=== PATIENT | male | born 1930 | race Caucasian/White ===

== ENCOUNTER 2018-03-14 11:19 | Emergency (ER) | payer MEDICARE ==
[2018-03-14 12:27] LABS: #Basophils 0.1 thou/uL (0.0-0.2); #Eosinphils 0.2 thou/uL (0.0-0.7); #Monocytes 0.6 thou/uL (0.11-0.59); #Neutrophils 5.4 thou/uL (1.40-6.50); %Basophils 1.1 % (0.0-1.0); %Eosinophils 2.1 % (0.0-10.0); %Lymphocytes 23.9 % (21.0-51.0); %Monocytes 7.5 % (0.0-10.0); %Neutrophils 65.3 % (42.0-75.0); Hemoglobin 13.4 g/dL (14.0-18.0); Mean Corpuscular HGB CONC 34.7 g/dL (32.0-36.0); Mean Corpuscular Hemoglobin 31.8 pg (27.0-31.0); Mean Corpuscular Volume 91.6 fl (80.0-94.0); Mean Platelet Volume 7.5 fL (7.4-10.4); Platelet Count 171 thou/uL (130-400); RBC Distribution Width 11.7 % (11.5-14.5); Red Blood Cell (RBC) Count 4.22 mill/uL (4.70-6.10); White Blood Cell (WBC) Count 8.2 thou/uL (4.8-10.8)
[2018-03-14 12:36] LABS: Anion Gap 12 mmol/L (10-20); BUN (Urea Nitrogen) 21 mg/dL (8.4-25.7); Calc. Creatinine Clearance 0 mL/min (70-130); Carbon Dioxide 24 mmol/L (23-31); Chloride 108 mmol/L (98-107); Estimated GFR-MDRD 50; Glucose 209 mg/dL (83-110); Potassium 4.5 mmol/L (3.5-5.1); Sodium 139 mmol/L (136-145)
[2018-03-14 12:45] LABS: Base Excess-Venous -1.9 mmol/L (0 (+/- 2.5)); Bicarbonate (HCO3v) 24.2 mmol/L (1.0-85.0); CO2 Tension (PvCO2) 44.5 mmHg (41.0-51.0); Calcium, Ionized 1.16 mmol/L (1.12-1.32); Hemoglobin - Calc 18.6 g/dL (12.0-18.0); O2 Tension (PvO2) 25.2 mmHg (35.0-45.0); Potassium 4.6 mmol/L (3.4-4.7); T. Carbon Dioxide 25.5 mmol/L (1.0-85.0); pH (Venous) 7.343 (7.35-7.45)
[2018-03-14 13:23] LABS: Bilirubin Negative (Negative); Blood, Urine Negative (Negative); Clarity Clear (Clear); Glucose, Urine (Dipstick) 100 mg/dL (Negative); Leukocyte Negative (Negative); Nitrite Negative (Negative); Protein, Urine (Dipstick) Negative (Neg-Trace); Specific Gravity, Urine 1.015 (1.005-1.030); Urobilinogen 0.2 mg/dL (0.2-1.0); pH, Urine 6.5 (5.0-9.0)
== END 2018-03-14 13:40 | disposition home or self-care (01) ==
LOC: SCSER 11:19
DX: E11.65 Type 2 diabetes mellitus with hyperglycemia (principal); I10 Essential (primary) hypertension; E78.5 Hyperlipidemia, unspecified; Z79.82 Long term (current) use of aspirin; Z79.899 Other long term (current) drug therapy
CPT/HCPCS: 36416; 80048; 81003; 82010; 82330; 82803; 85025; 99284; 36415-59

== ENCOUNTER 2019-05-27 11:52 | Observation (INO) | payer MEDICARE ==
--- NOTE | 2019-05-27 12:46 | CT ---
Head CT without contrast 05/27/2019: COMPARISON: 10/31/2010 HISTORY: Altered mental status TECHNIQUE: Axial CT imaging at 5 mm intervals from vertex through skull base without contrast FINDINGS: There is persistent motion artifact throughout this examination, significantly limiting det felipa assessment. There is diffuse cerebral volume loss. There is periventricular, deep, and subcortical white matter hypodensity, evidence of small vessel disease. No obvious hemorrhage. Hypode nsity within the inferior posterior left cerebellar hemisphere suggest an area of prior infarction. IMPRESSION: This study is significantly limited by motion. No obvious acute intracranial abnormality.
--- NOTE | 2019-05-27 12:52 | RAD ---
Portable frontal chest radiograph: 05/27/2019 COMPARISON: 12/16/2004 HISTORY: Altered mental status FINDINGS: Stable midline sternotomy wires. Stable prominence of the cardiac silhouette. No pneumothor ax or pleural fluid. No focal consolidation or alveolar edema. IMPRESSION: No acute findings.
[2019-05-27 13:17] LABS: #Basophils 0.1 thou/uL (0.0-0.2); #Eosinphils 0.2 thou/uL (0.0-0.7); #Lymphocytes 2.1 thou/uL (1.20-3.40); #Monocytes 0.7 thou/uL (0.11-0.59); #Neutrophils 5.1 thou/uL (1.40-6.50); %Basophils 1.1 % (0.0-1.0); %Eosinophils 1.9 % (0.0-10.0); %Lymphocytes 25.5 % (21.0-51.0); %Monocytes 8.3 % (0.0-10.0); %Neutrophils 63.3 % (42.0-75.0); Hemoglobin 13.1 g/dL (14.0-18.0); Mean Corpuscular HGB CONC 32.2 g/dL (32.0-36.0); Mean Corpuscular Hemoglobin 30.9 pg (27.0-31.0); Mean Corpuscular Volume 95.8 fL (78.0-98.0); Mean Platelet Volume 7.7 fL (7.4-10.4); Platelet Count 203 thou/uL (130-400); RBC Distribution Width 13.2 % (11.5-14.5); Red Blood Cell (RBC) Count 4.25 mill/uL (4.70-6.10); White Blood Cell (WBC) Count 8.1 thou/uL (4.8-10.8)
[2019-05-27 13:31] LABS: ALT (SGPT) 23 U/L (8-55); AST (SGOT) 18 U/L (5-34); Acetaminophen Less than 6.0 mcg/mL (10.0-30.0); Albumin 3.9 g/dL (3.4-4.8); Alcohol Less than 10 mg/dL (Less than 10); Alkaline Phosphatase 156 U/L (40-150); Anion Gap 13 mmol/L (10-20); BUN (Urea Nitrogen) 28 mg/dL (8.4-25.7); Bilirubin, Total 0.5 mg/dL (0.2-1.2); CK (CPK) 194 U/L (30-200); Calc. Creatinine Clearance 0 mL/min (70-130); Calcium 9.2 mg/dL (7.8-10.44); Carbon Dioxide 23 mmol/L (23-31); Chloride 110 mmol/L (98-107); Estimated GFR-MDRD 39; Globulin 3.2 g/dL (2.4-3.5); Glucose 173 mg/dL (83-110); Lipase 14 U/L (8-78); Potassium 4.3 mmol/L (3.5-5.1); Protein, Total 7.1 g/dL (5.8-8.1); Salicylate Less than 8.0 mg/dL (15.0-30.0); Sodium 142 mmol/L (136-145)
[2019-05-27 14:54] LABS: Bilirubin Negative (Negative); Blood, Urine Small (Negative); Glucose, Urine (Dipstick) Negative (Negative); Leukocyte Negative (Negative); Nitrite Negative (Negative); Protein, Urine (Dipstick) Trace mg/dL (Neg-Trace); Urobilinogen 0.2 mg/dL (Less than 2)
[2019-05-27 14:59] LABS: Clarity Hazy (Clear)
[2019-05-27 15:01] LABS: Bacteria/HPF Rare-Few HPF (None Seen); Squamous Epithelial None Seen HPF (0-3); WBC/HPF None Seen HPF (0-3)
[2019-05-27 15:05] LABS: Amphetamine Not Detected (NotDetected); Barbiturates Screen Not Detected (NotDetected); Benzodiazepine Screen Not Detected (NotDetected); Cocaine Metabolite Screen Not Detected (NotDetected); Medtox Control Line Valid? VALID (VALID); Methadone Not Detected (NotDetected); Methamphetamine Not Detected (NotDetected); Opiate Screen Not Detected (NotDetected); Oxycodone Screen Not Detected (NotDetected); Phencyclidine (PCP) Not Detected (NotDetected); THC/Cannabinoid Screen Not Detected (NotDetected); Tricyclic Screen Not Detected (NotDetected)
[2019-05-27] MEDS ORDERED: Aspirin Chewable 81 MG TAB ONE (16:16)
[2019-05-27 16:27] LABS: Troponin I 0.013 ng/mL (< 0.028)
[2019-05-27] MEDS ORDERED: Insulin Regular 300 UNITS/3 ML VIAL SC PRN (17:27)
[2019-05-27] MEDS ORDERED: Dextrose 50% Abboject 50 ML SYRINGE IVP PRN (17:27)
[2019-05-27] MEDS ORDERED: Dextrose 5% in Water 1,000 ML IV PRN ×2 (17:27→20:31)
[2019-05-27] MEDS ORDERED: Ondansetron ODT 4 MG TAB SL PRN (17:28)
[2019-05-27] MEDS ORDERED: Acetaminophen 325 MG TAB PO PRN ×2 (17:28→20:34)
[2019-05-27] MEDS ORDERED: Ondansetron PF 4 MG/2 ML Vial IVP PRN ×2 (17:28→20:34)
[2019-05-27 19:19] VITALS: BMI 27.0
[2019-05-27 19:40] LABS: Troponin I Less than 0.010 ng/mL (< 0.028)
[2019-05-27] MEDS ORDERED: HumaLOG 300 UNITS/3 ML VIAL SC PRN ×2 (20:31)
[2019-05-27] MEDS ORDERED: Dextrose 50% Abboject 50 ML SYRINGE SLOW IVP PRN (20:31)
[2019-05-27] MEDS ORDERED: Ondansetron ODT 4 MG TAB PO PRN (20:34)
[2019-05-27] MEDS ORDERED: Acetaminophen 650 MG Suppository PR PRN (20:34)
[2019-05-27] MEDS ORDERED: Atorvastatin Calcium 20 MG TAB PO SCH (21:00)
[2019-05-27] MEDS ORDERED: Non-Formulary Item 1 EACH (Insulin Glargine,Hum.Rec.Anlog [Lantus Solostar] 12 UNIT) SQ SCH (21:00)
--- NOTE | 2019-05-27 22:21 | HP ---
PRIMARY CARE PHYSICIAN: Dr. Kimberly Malcolm. CHIEF COMPLAINT: Memory loss and altered mood. HISTORY OF PRESENT ILLNESS: Mr. Mercado is an 88-year-old man with a known history of diabetes, coronary artery disease, and hyperlipidemia, who was brought in by his daughter due to increasing confusion and memory problems over the last month. The patient confirms he has had trouble remembering things for the last 3 to 4 weeks and also reports increasing weakness in his legs causing him to have difficulty walking long distances. Previously, he would walk 4-5 blocks without any trouble and now has moments when his legs feel weak and give out when walking short distances. He states he feels tired quickly, but denies any associated chest pain or shortness of breath. Also denies any dizziness. He reports being more forgetful for the last month. Denies any headache, vision changes, or slurred speech. Has not had trouble finding his words, but according to his daughters, he has been forgetting their names. Currently, he lives with his whom he does not have a great relationship with. They stay in separate rooms and per his daughters, he is easily agitated by his whenever she attempts to remind him to take his pills. They suspect he might be forgetting to take his insulin at night as well. The patient is suspected to be up all hours of the night as he is sleeping later. Yesterday, he woke up around 2: 00 p.m. and family report bizarre behavior. They state he got up to get dressed for a and managed to drive himself to [facility] because he could not remember where the hinduism was. There was actually no going on. The patient has no known history of Parkinson's or Alzheimer's. According to his daughters, he did go through rough period more than 5 years ago after the of his father. He stopped taking his medications and had severely uncontrolled hyperglycemia. He was admitted for suspected CVA; however after undergoing imaging and seeing a specialist in [place], they were told he did not have a stroke and actually had plaques in the brain associated with hyperglycemia. He was treated with medications for Parkinson disease. That medication the daughter states was Xenazine. He had chorea like movement of the right arm that after a year settled, but he has had unresolved clacking of his teeth and fidgeting with his left hand. The patient was eventually taken off the Xenazine and cleared from that perspective from any further followup. REVIEW OF SYSTEMS: He has been in his usual state of health without any fevers, chills, or sweats. Again, no headaches or dizziness. He denies any chest pain, palpitations, or shortness of breath. He has not had a cough. No urinary symptoms. Moving his bowels as normal and denies any constipation or diarrhea. No abdominal pain. All other review of systems negative. He also denies any unilateral weakness or numbness. No slurred speech. PAST MEDICAL HISTORY: 1. Diabetes. 2. Hyperlipidemia. 3. History of chorea. PAST SURGICAL HISTORY: CABG. SOCIAL HISTORY: The patient lives with his . No tobacco use, alcohol use, or illicit drug use. ALLERGIES: NO KNOWN DRUG ALLERGIES. CURRENT MEDICATIONS: 1. Metoprolol. 2. Flomax. 3. Lasix. 4. Allopurinol. 5. Zocor. 6. Aspirin. 7. NovoLog. 8. Lantus. 9. Zoloft. 10. Clopidogrel. 11. Synthroid. 12. Vitamin D3. PHYSICAL EXAMINATION: GENERAL: The patient appears well developed, well nourished, in no acute distress. VITAL SIGNS: Temperature 97.7, pulse 55, respirations 16, O2 saturation 98% on room air, blood pressure 144/68. HEENT: Normocephalic and atraumatic. Pupils are equal, round, and reactive to light. Sclerae without icterus. Oropharynx is clear. Extraocular movements intact. NECK: Supple. No nuchal rigidity. Full range of motion. LUNGS: Clear to auscultation bilaterally without any wheezes, rales, or rhonchi. CARDIAC: Regular rate and rhythm without audible murmurs, rubs, or gallops. ABDOMEN: Soft, nontender, nondistended. Normoactive bowel sounds present. EXTREMITIES: No lower leg swelling or edema. NEUROLOGICAL: Alert and oriented x2. Aware of the current president, but not aware of the year. States it is year of 20. Cranial nerves 2 through 12 intact. No tongue deviation. Facial movements normal, but able to follow commands. However, constant clacking of his mouth with loose dentures in place, this is long- standing according to his daughters. Choreatic movement of the left hand. SKIN: No rash or jaundice. DIAGNOSTIC STUDIES: EKG showed PACs, otherwise normal ST segments and no T-wave abnormalities. Normal sinus rhythm. Chest x-ray, no acute findings. CT of the brain significantly limited by motion, but no obvious hemorrhage. There is a hypodensity within the inferior posterior left cerebellar hemisphere suggesting an area of prior infarction. Diffuse cerebral volume loss. Evidence of small-vessel disease. LABORATORY DATA: White blood count 8.1, hemoglobin 13.1. Sodium 142, potassium 4.3, anion gap 13, BUN 28, creatinine 1.68, GFR of 39. LFTs unremarkable. Lactic acid 0.8. Troponin 0.013, less than 0.010. Lipase 14. TSH 2.4973. IMPRESSION AND PLAN: Mr. Mercado is an 88-year-old man who is being admitted for management of the followin. Confusion/memory loss/altered mood. This has been progressively worsening for the last month and additionally, he has been experiencing weakness affecting his activity level. CT of the brain did not show any acute abnormalities. Would benefit from MRI of the brain, however, the patient unable to sit still with constant clacking and movement. Attending has advised Neurology consult. No clinical signs or symptoms of infection. Chest x-ray unremarkable and urinalysis negative. Urine drug screen has been performed and also negative. 2. Diabetes mellitus. We will resume home medications once verified and monitor glucose. We will continue insulin sliding scale. 3. Coronary artery disease. We will resume home medications once verified. 4. WILLIAM/CKD. Gentle hydration. 5. Gastrointestinal prophylaxis. 6. Deep venous thrombosis prophylaxis with mechanical SCDs. 7. Weakness. Again, no evidence of underlying infection. Consult placed to PT , OT. His ability to cope at home is concerning, given forgetfulness in taking medications and the fact that he is easily able to leave his home and drive during these periods of confusion. 8. Code status, DNAR. His surrogate decision maker is his daughter, Gerda Richard. The patient's case was discussed with the attending, who agrees with the plan of care as described above. Job ID: [id number] MTDD
[2019-05-27] MEDS: Allopurinol 100 MG TAB PO SCH (22:57)
[2019-05-27] MEDS: Insulin Glargine 12 UNITS in Pre-Filled Syringe 1 EACH SC SCH (22:58)
[2019-05-28 05:37] LABS: #Eosinphils 0.2 thou/uL (0.0-0.7); #Lymphocytes 2.2 thou/uL (1.20-3.40); #Monocytes 0.6 thou/uL (0.11-0.59); #Neutrophils 4.9 thou/uL (1.40-6.50); %Basophils 0.5 % (0.0-1.0); %Lymphocytes 28.1 % (21.0-51.0); %Monocytes 7.8 % (0.0-10.0); %Neutrophils 61.6 % (42.0-75.0); Hemoglobin 12.9 g/dL (14.0-18.0); Mean Corpuscular HGB CONC 33.9 g/dL (32.0-36.0); Mean Corpuscular Hemoglobin 31.7 pg (27.0-31.0); Mean Corpuscular Volume 93.5 fL (78.0-98.0); Mean Platelet Volume 7.9 fL (7.4-10.4); Platelet Count 202 thou/uL (130-400); RBC Distribution Width 12.3 % (11.5-14.5); Red Blood Cell (RBC) Count 4.07 mill/uL (4.70-6.10); White Blood Cell (WBC) Count 7.9 thou/uL (4.8-10.8)
[2019-05-28 05:57] LABS: Anion Gap 11 mmol/L (10-20); BUN (Urea Nitrogen) 28 mg/dL (8.4-25.7); Calc. Creatinine Clearance 43 mL/min (70-130); Calcium 9.1 mg/dL (7.8-10.44); Carbon Dioxide 25 mmol/L (23-31); Chloride 107 mmol/L (98-107); Estimated GFR-MDRD 45; Glucose 90 mg/dL (83-110); Potassium 3.9 mmol/L (3.5-5.1); Sodium 139 mmol/L (136-145)
[2019-05-28] MEDS ORDERED: Levothyroxine Sodium 25 MCG TAB PO SCH (06:00)
[2019-05-28 06:44] LABS: Folate (Folic Acid) 9.5 ng/mL (7.0-31.4)
[2019-05-28] MEDS ORDERED: Aspirin Chewable 81 MG TAB PO SCH (09:00)
[2019-05-28] MEDS: Allopurinol 100 MG TAB PO SCH (10:26)
[2019-05-28] MEDS: Insulin Regular 300 UNITS/3 ML VIAL SC SCH ×2 (10:27→17:17)
[2019-05-28] MEDS: Insulin Glargine 12 UNITS in Pre-Filled Syringe 1 EACH SC SCH (10:27)
--- NOTE | 2019-05-28 10:52 | PDOC.HOSPP ---
- Subjective Subjective: presenting neuro /psych symptoms resolved - Objective Vital Signs & Weight: Vital Signs (12 hours) Temp Pulse Resp BP BP Pulse Ox 05/28/19 07:01 98 F 64 16 130/77 96 05/28/19 06:00 97.7 F 76 16 168/72 H 95 05/28/19 00:00 97.5 F L 64 16 152/77 H 96 Weight Weight 194 lb Result Diagrams: 05/28/19 04:55 05/28/19 04:55 Additional Labs: Accuchecks 05/28/19 05/27/19 06:09 23:07 POC Glucose 79 169 H ROS - Review of Systems All systems: All other ROS were reviewed and found negative. - Medication Medications: Active Medications Generic Name Dose Route Start Last Admin Trade Name Freq PRN Reason Stop Dose Admin Allopurinol 100 mg 05/27/19 21:00 05/28/19 10:26 Zyloprim PO 100 mg BID LANG Administration Aspirin 81 mg 05/28/19 09:00 05/28/19 10:26 Aspirin Chewable PO 81 mg DAILY LANG Administration Atorvastatin Calcium 20 mg 05/27/19 21:00 05/27/19 22:57 Lipitor PO 20 mg HS LANG Administration Insulin Glargine 12 units/ 0.12 mls @ 0 mls/hr 05/27/19 21:00 05/28/19 10:27 Miscellaneous Medication SC 0.12 mls BID LANG Administration Insulin Human Regular 4 units 05/28/19 09:00 05/28/19 10:27 Humulin R SC 4 unit TID LANG Administration Levothyroxine Sodium 25 mcg 05/28/19 06:00 05/28/19 06:35 Synthroid PO 25 mcg 0600 LANG Administration Sertraline HCl 25 mg 05/27/19 21:00 05/27/19 22:57 Zoloft PO 25 mg QPM LANG Administration - Exam Neck: JVD Heart: RRR, no murmur Respiratory: CTAB Gastrointestinal: soft, non-tender, normal bowel sounds Extremities: no edema Neurological: CN's grossly intact, no focal deficits Hosp A/P (1) Altered mental status Code(s): R41.82 - ALTERED MENTAL STATUS, UNSPECIFIED Status: Acute (2) Dementia Code(s): F03.90 - UNSPECIFIED DEMENTIA WITHOUT BEHAVIORAL DISTURBANCE Status: Acute Qualifiers: Dementia type: unspecified type (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 transplanted heart: [place] heart Associated angina: without angina Qualified Code(s): I25.10 - Atherosclerotic heart disease of [place] coronary artery without angina pectoris (5) HTN (hypertension) Code(s): I10 - ESSENTIAL (PRIMARY) HYPERTENSION Status: Acute (6) Dyslipidemia Code(s): E78.5 - HYPERLIPIDEMIA, UNSPECIFIED Status: Acute - Plan medically stable. awaiting neuro consult.
[2019-05-28] MEDS ORDERED: Cyanocobalamin 1000 MCG/ML VIAL IM SCH (18:45)
--- NOTE | 2019-05-28 19:14 | DIS ---
DATE OF ADMISSION: 05/27/2019 DATE OF DISCHARGE: 05/28/2019 PRIMARY CARE PROVIDER: Kimberly Malcolm MD DISPOSITION: Discharged home. FINAL DIAGNOSES: Altered mental status, diabetes mellitus type 2, coronary artery disease, dyslipidemia, and hypertension. DISCHARGE MEDICATIONS: 1. NovoLog 4 units subcu t.i.d. 2. Synthroid 25 mcg a day. 3. Plavix 75 mg a day. 4. Flomax 0.4 mg a day. 5. Lopressor 25 mg a day. 6. Lasix 20 mg a day. 7. Lantus 25 units subcu twice a day. 8. Aspirin 81 mg a day. 9. Allopurinol 100 mg twice a day. 10. Zocor 40 mg a day. 11. Zoloft 50 mg a day. ALLERGIES: NO KNOWN DRUG ALLERGIES. CODE STATUS: DNR. PENDING AT TIME OF DISCHARGE: Nothing. DIET: Heart healthy. HOSPITAL COURSE: The patient admitted to [facility] through [facility] with memory loss and altered mood, increasing confusion, memory. He was seen and evaluated in the emergency room. Chest x-ray, no acute findings. Brain CT, no acute intracranial abnormality. An MRI could not be done because he would not be still. Laboratory; white count 8.1, platelet count 203,000, hemoglobin 13.1. Chemistries; sodium 142, potassium 4.3, BUN 28, creatinine 1.68, blood sugar 173, alkaline phosphatase 156, bilirubin 0.4, AST 18, ALT 23, followup creatinine 1.48, BUN 28. The patient was seen in consultation by Dr. Dougie Tracy, who stated to the nurse and the family the patient could go home. There is no dictated discharge summary. The family stated he wanted the patient to have a vitamin B12 shot. This has been ordered. The patient has had no procedures. Dr. Tracy recommended followup with him in 1 month and that will be done for possible Alzheimer disease. I recommend that the patient see a PCP, Kimberly Malcolm in 1 week. Job ID: [id number]
[2019-05-28 19:26] VITALS: BP 145/73; TEMP 97.2
[2019-05-28] MEDS ORDERED: Clopidogrel Bisulfate 75 MG TAB PO SCH (21:00)
--- NOTE | 2019-05-29 00:51 | CON ---
DATE OF CONSULTATION: 05/28/2019 CONSULTING PHYSICIAN: Hospitalist Services. IMPRESSION: Alzheimer disease. PLAN: 1. Aricept 5 mg per day. 2. Continue Zoloft. 3. B12 of 1000 units injection. 4. Office followup. HISTORY OF PRESENT ILLNESS: Mr. Mercado is an 88-year-old gentleman, who has been living at home with the assistance of his . His has some physical disabilities and they have noticed that his cognitive state has been steadily slipping. He has had difficulty recalling the names of family members. He has occasionally gotten confused at night and thought it was time to get up. He has had some hallucinations in the past, but family denies any problems recently. He still controls bowel and bladder. He is having more physical difficulties such as with balance and buttoning. He was brought in for evaluation due to these cognitive changes. He had a CT of the brain, which showed fairly impressive atrophy and moderate amount of small-vessel ischemic changes. His lab work was unremarkable other than his B12 of 201. He only had mildly elevated creatinine. PAST HISTORY: Diabetes. FAMILY HISTORY: Noncontributory. SOCIAL HISTORY: No tobacco or alcohol. He is living at home with his . REVIEW OF SYSTEMS: Review of system is not obtainable secondary to his cognitive ability. PHYSICAL EXAMINATION: GENERAL: He is a well-nourished elderly man, sitting in a chair, eating supper. HEENT: Pupils are equal and reactive. Conjunctivae clear. Oropharynx clear. He has constant clicking of his teeth. NECK: No lymphadenopathy. EXTREMITIES: No cyanosis, clubbing, or edema. NEUROLOGIC: He was alert and responsive. He would answer questions when spoken to. He stayed fairly detached from the conversation with the family. Cranial nerve exam did not show any asymmetries. Motor exam showed equal contact person strength. His gait is a bit unsteady and stooped. Sensations grossly intact. No abnormal movements were seen other than the jaw movements. 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 Go ahead and start him on Aricept. I will follow up with him in the office. Job ID: [id number]
--- NOTE | 2019-06-02 15:31 | EKG ---
Test Reason : AMS Blood Pressure : / mmHG Vent. Rate : 061 BPM Atrial Rate : 061 BPM P-R Int : 156 ms QRS Dur : 064 ms QT Int : 408 ms P-R-T Axes : -21 007 072 degrees QTc Int : 410 ms Sinus rhythm with Premature atrial complexes Artifact Confirmed by АНДРЕЙ ESPINOZA DO ([id number]), order editor MAURICIO BAEZA ([id number]) on 06/02/2019 3:31:06 PM Referred By: Ricardo ESPINOZA Confirmed By:АНДРЕЙ ESIPNOZA DO
== END 2019-05-28 19:42 | disposition home or self-care (01) ==
LOC: SCSER 11:52 → T4-A 15:55
PROVIDERS: ADMIT Internal Medicine; ATTEND Internal Medicine
DX: R41.0 Disorientation, unspecified (principal); R41.3 Other amnesia; R53.1 Weakness; I25.10 Atherosclerotic heart disease of native coronary artery without angina pectoris; E78.5 Hyperlipidemia, unspecified; I12.9 Hypertensive chronic kidney disease with stage 1 through stage 4 chronic kidney disease, or unspecified chronic kidney disease; E11.22 Type 2 diabetes mellitus with diabetic chronic kidney disease; N18.3 Chronic kidney disease, stage 3 (moderate); N17.9 Acute kidney failure, unspecified; G30.9 Alzheimer's disease, unspecified; F02.80 Dementia in other diseases classified elsewhere, unspecified severity, without behavioral disturbance, psychotic disturbance, mood disturbance, and anxiety; Z66 Do not resuscitate; Z79.02 Long term (current) use of antithrombotics/antiplatelets; Z79.4 Long term (current) use of insulin; Z79.82 Long term (current) use of aspirin; Z79.899 Other long term (current) drug therapy
CPT/HCPCS: 51701; 70450; 71045; 80048; 80306; 80307; 82550; 82607; 82746; 82962 ×2; 83605; 83690; 83880; 84484 ×2; 85025; 93005; 96372; 97116; 97139 ×6; 99285; G0378 ×3; 36415; 36416; 80053; 81003; 81015; 84443; J1815; J3420

== ENCOUNTER 2019-07-31 07:35 | Emergency (ER) | payer MEDICARE ==
[2019-07-31] MEDS ORDERED: Bacitracin Zinc Ointment 30 gm TUBE ONE (08:06)
[2019-07-31] MEDS ORDERED: Adacel (T-DAP) 0.5 ML SYRINGE ONE (08:08)
[2019-07-31] MEDS ORDERED: Acetaminophen 325 MG TAB ONE (08:08)
--- NOTE | 2019-07-31 08:55 | CT ---
BRAIN CT WITHOUT IV CONTRAST: Date: 07/31/19 HISTORY: Injury from a fall. COMPARISON: 05/27/19. FINDINGS: Marked bilateral atrophy and chronic white matter ischemic changes and some old right occipital and l eft cerebellar hemisphere infarct changes. No focal mass or midline shift. No intra or extra-axial he morrhage. IMPRESSION: Atrophy and chronic white matter ischemic changes. No mass or bleed. Stable from prior study. POS: TPC
--- NOTE | 2019-07-31 08:58 | RAD ---
EXAM: XR Lumbar Spine 2 Or 3 View PROVIDED CLINICAL HISTORY: Injury after falling from standing position. Patient complains of back pain. COMPARISON: None FINDINGS: There are 5 nonrib-bearing lumbar-type vertebral bodies. Multilevel degenerative changes are present in the lumbar spine with multilevel osteophytes and narrowing of the intervertebral disc spaces at all levels of the lumbar spine greatest at the lumbosacral junction. There is slight height loss of t he T12 vertebral body along the superior endplate suggesting a mild compression fracture of indeterminate age. There is no evidence of a subluxation. Vascular calcifications are seen in the abdominal aorta and involving the iliac arteries. IMPRESSION: 1. Mild compression fracture involving the T12 vertebral body of indeterminate age. 2. Multilevel degenerative changes throughout the lumbar spine.
--- NOTE | 2019-07-31 08:59 | RAD ---
Frontal and lateral imaging of the thoracic spine: 07/31/2019 HISTORY: Fall, trauma, pain FINDINGS: There are numerous midline sternotomy wires present. Lateral examination is slightly limite d by rotation. There is multilevel upper lumbar spine disc space narrowing with degenerative endplate change and anterior osteophyte formation. There is multilevel disc space narrowing with dege nerative endplate change and anterior osteophyte formation within the mid/lower thoracic spine, most prominent at the T6-7 level through the T9-10 level. No discrete fracture within the thoracic sp ine is seen. No significant anterolisthesis or retrolisthesis noted. IMPRESSION: Multilevel thoracic spine degenerative change. No acute osseous abnormality.
== END 2019-07-31 09:25 | disposition home or self-care (01) ==
LOC: SCSER 07:35
DX: S22.089A Unspecified fracture of T11-T12 vertebra, initial encounter for closed fracture (principal); S51.812A Laceration without foreign body of left forearm, initial encounter; I10 Essential (primary) hypertension; E11.9 Type 2 diabetes mellitus without complications; E78.5 Hyperlipidemia, unspecified; F03.90 Unspecified dementia, unspecified severity, without behavioral disturbance, psychotic disturbance, mood disturbance, and anxiety; Z79.899 Other long term (current) drug therapy; Z79.82 Long term (current) use of aspirin; Z79.4 Long term (current) use of insulin; W18.30XA Fall on same level, unspecified, initial encounter
CPT/HCPCS: 70450; 72072; 72100; 90471; 90715